=== PATIENT | female | born 2000 | race American Indian/Alaskan Native ===

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

== ENCOUNTER 2019-03-18 09:19 | Emergency (ER) | payer MEDICAID ==
[2019-03-18 09:26] VITALS: BP 156/85
[2019-03-18 10:10] LABS: HCG Qualitative,Urine Negative (Negative)
--- NOTE | 2019-03-18 10:12 | Emergency Department Report ---
ED Female HPI - General Chief complaint: Urogenital-Female Stated complaint: VAGINAL PAIN Time Seen by Provider: 03/18/19 09:36 Source: patient Mode of arrival: Ambulatory Limitations: No Limitations - History of Present Illness Initial comments: This is a 18-year-old female who presents ED complaining of suprapubic pelvic pain with dysuria along with vaginal redness and swelling with pain that hasbeen going On for the past week. Patient denies any fevers/chills/nausea vomiting, chest pain shortness of breath or any other symptoms MD Complaint: dysuria, pelvic pain Location: labia, suprapubic Severity: moderate Severity scale (0 -10): 8 Quality: cramping, burning (the vagina) Worsens with: none Are you Now?: No Associated Symptoms: denies: vaginal bleeding - Related Data Previous Rx's Medication Instructions Recorded Last Taken Type Ibuprofen [Motrin] 800 mg PO Q8H PRN #20 tablet 10/22/13 Unknown Rx Penicillin Vk [Veetids TAB] 2 tab PO BID #40 tablet 10/22/13 Unknown Rx ALBUTEROL Inhaler (OR & NICU) 2 puff IH QID PRN #1 inhalation 04/04/16 Unknown Rx [ProAir HFA Inhaler] guaiFENesin [Robitussin] 200 mg PO Q6HR #20 tablet 04/04/16 Unknown Rx predniSONE [Deltasone] 20 mg PO QDAY #5 tab 04/04/16 Unknown Rx Clindamycin [Clindamycin CAP] 300 mg PO Q6H #28 capsule 04/25/16 Unknown Rx Vit-Fe Fumar-FA [ 1 tab PO QDAY #30 tablet 04/25/16 Unknown Rx Vitamin] oxyCODONE /ACETAMINOPHEN [Percocet 1 tab PO Q6HR PRN #40 tablet 04/25/16 Unknown Rx 5/325] DOXYCYCLINE Hyclate [Vibramycin 100 mg PO Q12HR #28 capsule 11/12/16 Unknown Rx CAP] PE/Mo/Pet,Wh [Preparation H] 1 applicatio [place] BID PRN #1 tube 11/12/16 Unknown Rx metroNIDAZOLE [Flagyl TAB] 500 mg PO Q12HR #28 tab 11/12/16 Unknown Rx Amoxicillin [Amoxicillin TAB] 875 mg PO BID #20 tablet 02/12/17 Unknown Rx Ciprofloxacin HCl [Ciprofloxacin 500 mg PO BID 7 Days tablet 03/11/17 Unknown Rx TAB] Cyclobenzaprine [Flexeril] 10 mg PO QHS PRN #20 tablet 03/11/17 Unknown Rx Ibuprofen [Motrin 800 MG tab] 800 mg PO Q8HR PRN #30 tablet 03/11/17 Unknown Rx Naproxen [Naprosyn] 500 mg PO TID #12 tablet 01/10/18 Unknown Rx traMADoL [Ultram 50 MG tab] 50 mg PO Q6HR PRN #8 tablet 01/10/18 Unknown Rx Clindamycin [Clindamycin CAP] 300 mg PO Q8H #21 cap 03/18/19 Unknown Rx Fluconazole [Diflucan TAB] 150 mg PO ONCE #1 tablet 03/18/19 Unknown Rx Allergies Allergy/AdvReac Type Severity Reaction Status Date / Time No Known Allergies Allergy Verified 06/26/13 19:36 ED Review of Systems ROS: Stated complaint: VAGINAL PAIN Other details as noted in HPI Comment: All other systems reviewed and negative ED Past Medical Hx - Past Medical History Previous Medical History?: Yes Hx Hypertension: No Hx Congestive Heart Failure: No Hx Diabetes: No Hx Deep Vein Thrombosis: No Hx Renal Disease: No Hx Sickle Cell Disease: No Hx Seizures: No Hx Asthma: Yes Hx COPD: No Hx HIV: No Additional medical history: ADHD, - Surgical History Past Surgical History?: Yes Additional Surgical History: 2013, 04-22-2016 - Social History Smoking Status: Never Smoker Substance Use Type: None - Medications Home Medications: Home Medications Medication Instructions Recorded Confirmed Last Taken Type Ibuprofen [Motrin] 800 mg PO Q8H PRN #20 tablet 10/22/13 04/23/16 Unknown Rx Penicillin Vk [Veetids TAB] 2 tab PO BID #40 tablet 10/22/13 04/23/16 Unknown Rx ALBUTEROL Inhaler (OR & NICU) 2 puff IH QID PRN #1 inhalation 04/04/16 04/23/16 Unknown Rx [ProAir HFA Inhaler] guaiFENesin [Robitussin] 200 mg PO Q6HR #20 tablet 04/04/16 04/23/16 Unknown Rx predniSONE [Deltasone] 20 mg PO QDAY #5 tab 04/04/16 04/23/16 Unknown Rx Clindamycin [Clindamycin CAP] 300 mg PO Q6H #28 capsule 04/25/16 Unknown Rx Vit-Fe Fumar-FA [ 1 tab PO QDAY #30 tablet 04/25/16 Unknown Rx Vitamin] oxyCODONE /ACETAMINOPHEN [Percocet 1 tab PO Q6HR PRN #40 tablet 04/25/16 Unknown Rx 5/325] DOXYCYCLINE Hyclate [Vibramycin 100 mg PO Q12HR #28 capsule 11/12/16 Unknown Rx CAP] PE/Mo/Pet,Wh [Preparation H] 1 applicatio [place] BID PRN #1 tube 11/12/16 Unknown Rx metroNIDAZOLE [Flagyl TAB] 500 mg PO Q12HR #28 tab 11/12/16 Unknown Rx Amoxicillin [Amoxicillin TAB] 875 mg PO BID #20 tablet 02/12/17 Unknown Rx Ciprofloxacin HCl [Ciprofloxacin 500 mg PO BID 7 Days tablet 03/11/17 Unknown Rx TAB] Cyclobenzaprine [Flexeril] 10 mg PO QHS PRN #20 tablet 03/11/17 Unknown Rx Ibuprofen [Motrin 800 MG tab] 800 mg PO Q8HR PRN #30 tablet 03/11/17 Unknown Rx Naproxen [Naprosyn] 500 mg PO TID #12 tablet 01/10/18 Unknown Rx traMADoL [Ultram 50 MG tab] 50 mg PO Q6HR PRN #8 tablet 01/10/18 Unknown Rx Clindamycin [Clindamycin CAP] 300 mg PO Q8H #21 cap 03/18/19 Unknown Rx Fluconazole [Diflucan TAB] 150 mg PO ONCE #1 tablet 03/18/19 Unknown Rx ED Physical Exam - General Limitations: No Limitations General appearance: alert, in no apparent distress - Head Head exam: Present: atraumatic, normocephalic - Eye Eye exam: Present: normal appearance - ENT ENT exam: Present: mucous membranes moist - Neck Neck exam: Present: normal inspection - Respiratory Respiratory exam: Present: normal lung sounds bilaterally. Absent: respiratory distress - Cardiovascular Cardiovascular Exam: Present: regular rate, normal rhythm. Absent: systolic murmur, diastolic murmur, rubs, gallop - GI/Abdominal GI/Abdominal exam: Present: soft, normal bowel sounds. Absent: distended, tenderness - External exam: Present: erythema, swelling Speculum exam: Present: vaginal discharge. Absent: erythema, cervical discharge, vaginal bleeding Bi-manual exam: Present: normal bi-manual exam - Extremities Exam Extremities exam: Present: normal inspection, full ROM - Back Exam Back exam: Present: normal inspection - Neurological Exam Neurological exam: Present: alert, oriented X3, normal gait - Psychiatric Psychiatric exam: Present: normal affect, normal mood - Skin Skin exam: Present: warm, dry, intact, normal color. Absent: rash ED Course Vital Signs 03/18/19 09:25 Temperature 97.6 F Pulse Rate 83 Respiratory 18 Rate Blood Pressure 156/85 O2 Sat by Pulse 97 Oximetry ED Medical Decision Making - Medical Decision Making 18-year-old female presents with vulvovaginitis. Patient was sent home with treatment medication. Discussed the patient to follow-up with [facility] or her [facility] doctor. Discussed with the patient if any signs of SCDs patient is advised to follow-up for STD screening and treatment. This is a normal patient is in no acute distress Critical care attestation.: If time is entered above; I have spent that time in minutes in the direct care of this critically ill patient, excluding procedure time. ED Disposition Clinical Impression: Acute vulvovaginitis, Dysuria, Suprapubic pain Disposition: - TO HOME OR SELFCARE Is pt being admited?: No Does the pt Need Aspirin: No Condition: Stable Instructions: Vaginitis (ED), Vulvovaginal Candidiasis (ED), Dysuria (ED) Additional Instructions: Make sure to follow up with the primary care physician as discussed. Take all your medications as you've been prescribed. If you have any worsening symptoms or develop new symptoms please return to ED immediately. Prescriptions: Clindamycin [Clindamycin CAP] 300 mg PO Q8H #21 cap Fluconazole [Diflucan TAB] 150 mg PO ONCE #1 tablet Referrals: PRIMARY CARE, [Primary Care Provider] - 3-5 Days [facility] [Outside] - 3-5 Days [facility] [Outside] - 3-5 Days [facility] [Outside] - 3-5 Days [facility] [Outside] - 3-5 Days Forms: Accompanied Note, Work/School Release Form(ED) Time of Disposition: 10:21
[2019-03-18 10:18] LABS: Bacteria,Urine 1+ /HPF (Negative); Bilirubin,Urine NEG (Negative); Blood,Urine NEG (Negative); Color,Urine Straw (Yellow); Mucus,Urine FEW /HPF; Protein,Urine <15 mg/dL mg/dL (Negative); Urobilinogen,Urine < 2.0 mg/dL (<2.0)
== END 2019-03-18 11:05 | disposition home or self-care (01) ==
LOC: ED 09:19
DX: N76.0 Acute vaginitis (principal); R10.9 Unspecified abdominal pain; F90.9 Attention-deficit hyperactivity disorder, unspecified type; Z98.890 Other specified postprocedural states; Z79.1 Long term (current) use of non-steroidal anti-inflammatories (NSAID); Z79.2 Long term (current) use of antibiotics; Z79.899 Other long term (current) drug therapy; Z79.4 Long term (current) use of insulin
CPT/HCPCS: 81001; 81025

== ENCOUNTER 2019-11-28 15:21 | Emergency (ER) | payer MEDICAID ==
[2019-11-28 15:33] VITALS: BP 159/81
--- NOTE | 2019-11-28 18:21 | Emergency Department Report ---
Blank Doc - Documentation Documentation: 19-year-old female that presents with dysuria, vaginal irritation, vaginal dis charge and pelvic pain. This initial assessment/diagnostic orders/clinical plan/treatment(s) is/are subject to change based on patient's health status, clinical progression and re- assessment by fellow clinical providers in the ED. Further treatment and workup at subsequent clinical providers discretion. Patient/guardians urged not to elope from the ED as their condition may be serious if not clinically assessed and managed. Initial orders include: 1- Patient sent to [facility] for further evaluation and treatment 2- UA 3- pelvic exam to be done
[2019-11-28 19:01] LABS: Bacteria,Urine 1+ /HPF (Negative); Bilirubin,Urine NEG (Negative); Blood,Urine NEG (Negative); Color,Urine Yellow (Yellow); Mucus,Urine FEW /HPF; Protein,Urine <15 mg/dL mg/dL (Negative); Urobilinogen,Urine < 2.0 mg/dL (<2.0)
[2019-11-28 19:07] LABS: HCG Qualitative,Urine Negative (Negative)
[2019-11-28] MEDS ORDERED: LIDOCAINE-MPF (1%) 10 MG/1 ML VIAL 5 ML INFILTRATI ONE (20:04)
[2019-11-28] MEDS ORDERED: AZITHROMYCIN 250 MG TAB PO ONE (20:04)
--- NOTE | 2019-11-28 20:11 | Emergency Department Report ---
ED Female HPI - General Chief complaint: Urogenital-Female Stated complaint: BODYACHE Time Seen by Provider: 11/28/19 18:20 Source: patient Mode of arrival: Ambulatory Limitations: No Limitations - History of Present Illness Initial comments: 19-year-old female presents to ED with complaint of vaginal irritation x1 week. Patient reports yellow discharge, dysuria, vaginal itching. She denies any abdominal pain. Patient also reports having a fever blister to her lip. MD Complaint: vaginal discharge, dysuria -: week(s) (1) Severity: mild Consistency: constant Improves with: none Worsens with: urination Are you Now?: No Associated Symptoms: vaginal discharge, dysuria. denies: abdominal pain, nausea/vomiting, fever/chills - Related Data Previous Rx's Medication Instructions Recorded Last Taken Type Ibuprofen [Motrin] 800 mg PO Q8H PRN #20 tablet 10/22/13 Unknown Rx Penicillin Vk [Veetids TAB] 2 tab PO BID #40 tablet 10/22/13 Unknown Rx Albuterol Mdi (or & Nicu Only) 2 puff IH QID PRN #1 inhalation 04/04/16 Unknown Rx [ProAir HFA Inhaler] guaiFENesin [Robitussin] 200 mg PO Q6HR #20 tablet 04/04/16 Unknown Rx predniSONE [Deltasone] 20 mg PO QDAY #5 tab 04/04/16 Unknown Rx Clindamycin [Clindamycin CAP] 300 mg PO Q6H #28 capsule 04/25/16 Unknown Rx Vit-Fe Fumar-FA [ 1 tab PO QDAY #30 tablet 04/25/16 Unknown Rx Vitamin] oxyCODONE /ACETAMINOPHEN [Percocet 1 tab PO Q6HR PRN #40 tablet 04/25/16 Unknown Rx 5/325] DOXYCYCLINE Hyclate [Vibramycin 100 mg PO Q12HR #28 capsule 11/12/16 Unknown Rx CAP] PE/Mo/Pet,Wh [Preparation H] 1 applicatio [place] BID PRN #1 tube 11/12/16 Unknown Rx metroNIDAZOLE [Flagyl TAB] 500 mg PO Q12HR #28 tab 11/12/16 Unknown Rx Amoxicillin [Amoxicillin TAB] 875 mg PO BID #20 tablet 02/12/17 Unknown Rx Ciprofloxacin HCl [Ciprofloxacin 500 mg PO BID 7 Days tablet 12/06/17 Unknown Rx TAB] Cyclobenzaprine [Flexeril] 10 mg PO QHS PRN #20 tablet 03/11/17 Unknown Rx Ibuprofen [Motrin 800 MG tab] 800 mg PO Q8HR PRN #30 tablet 03/11/17 Unknown Rx Naproxen [Naprosyn] 500 mg PO TID #12 tablet 01/10/18 Unknown Rx traMADoL [Ultram 50 MG tab] 50 mg PO Q6HR PRN #8 tablet 01/10/18 Unknown Rx Clindamycin [Clindamycin CAP] 300 mg PO Q8H #21 cap 03/18/19 Unknown Rx Fluconazole (Nf) [Diflucan TAB] 150 mg PO ONCE #1 tablet 03/18/19 Unknown Rx Valacyclovir HCl [Valtrex] 2,000 mg PO Q12HR 1 Days #4 tablet 11/28/19 Unknown Rx metroNIDAZOLE [Flagyl] 500 mg PO Q12HR 7 Days #14 tab 11/28/19 Unknown Rx Allergies Allergy/AdvReac Type Severity Reaction Status Date / Time No Known Allergies Allergy Verified 06/26/13 19:36 ED Review of Systems ROS: Stated complaint: BODYACHE Other details as noted in HPI Comment: All other systems reviewed and negative Constitutional: denies: chills, fever ENT: other (Patient reports fever blister lip) Gastrointestinal: denies: abdominal pain Genitourinary: dysuria, discharge ED Past Medical Hx - Past Medical History Previous Medical History?: Yes Hx Hypertension: No Hx Congestive Heart Failure: No Hx Diabetes: No Hx Deep Vein Thrombosis: No Hx Renal Disease: No Hx Sickle Cell Disease: No Hx Seizures: No Hx Asthma: Yes Hx COPD: No Hx HIV: No Additional medical history: ADHD, - Surgical History Past Surgical History?: Yes Additional Surgical History: 2014, 04-22-2016 - Social History Smoking Status: Never Smoker Substance Use Type: None - Medications Home Medications: Home Medications Medication Instructions Recorded Confirmed Last Taken Type Ibuprofen [Motrin] 800 mg PO Q8H PRN #20 tablet 10/22/13 04/23/16 Unknown Rx Penicillin Vk [Veetids TAB] 2 tab PO BID #40 tablet 10/22/13 04/23/16 Unknown Rx Albuterol Mdi (or & Nicu Only) 2 puff IH QID PRN #1 inhalation 04/04/16 04/23/16 Unknown Rx [ProAir HFA Inhaler] guaiFENesin [Robitussin] 200 mg PO Q6HR #20 tablet 04/04/16 04/23/16 Unknown Rx predniSONE [Deltasone] 20 mg PO QDAY #5 tab 04/04/16 04/23/16 Unknown Rx Clindamycin [Clindamycin CAP] 300 mg PO Q6H #28 capsule 04/25/16 Unknown Rx Vit-Fe Fumar-FA [ 1 tab PO QDAY #30 tablet 04/25/16 Unknown Rx Vitamin] oxyCODONE /ACETAMINOPHEN [Percocet 1 tab PO Q6HR PRN #40 tablet 04/25/16 Unknown Rx 5/325] DOXYCYCLINE Hyclate [Vibramycin 100 mg PO Q12HR #28 capsule 11/12/16 Unknown Rx CAP] PE/Mo/Pet,Wh [Preparation H] 1 applicatio [place] BID PRN #1 tube 11/12/16 Unknown Rx metroNIDAZOLE [Flagyl TAB] 500 mg PO Q12HR #28 tab 11/12/16 Unknown Rx Amoxicillin [Amoxicillin TAB] 875 mg PO BID #20 tablet 02/12/17 Unknown Rx Ciprofloxacin HCl [Ciprofloxacin 500 mg PO BID 7 Days tablet 03/11/17 Unknown Rx TAB] Cyclobenzaprine [Flexeril] 10 mg PO QHS PRN #20 tablet 03/11/17 Unknown Rx Ibuprofen [Motrin 800 MG tab] 800 mg PO Q8HR PRN #30 tablet 03/11/17 Unknown Rx Naproxen [Naprosyn] 500 mg PO TID #12 tablet 01/10/18 Unknown Rx traMADoL [Ultram 50 MG tab] 50 mg PO Q6HR PRN #8 tablet 01/10/18 Unknown Rx Clindamycin [Clindamycin CAP] 300 mg PO Q8H #21 cap 03/18/19 Unknown Rx Fluconazole (Nf) [Diflucan TAB] 150 mg PO ONCE #1 tablet 03/18/19 Unknown Rx Valacyclovir HCl [Valtrex] 2,000 mg PO Q12HR 1 Days #4 tablet 11/28/19 Unknown Rx metroNIDAZOLE [Flagyl] 500 mg PO Q12HR 7 Days #14 tab 11/28/19 Unknown Rx ED Physical Exam - General Limitations: No Limitations General appearance: alert, in no apparent distress, obese - Head Head exam: Present: atraumatic, normocephalic - Eye Eye exam: Present: normal appearance - ENT ENT exam: Present: mucous membranes moist - Neck Neck exam: Present: normal inspection - Respiratory Respiratory exam: Present: normal lung sounds bilaterally. Absent: respiratory distress - Cardiovascular Cardiovascular Exam: Present: regular rate, normal rhythm - GI/Abdominal GI/Abdominal exam: Present: soft. Absent: distended, tenderness - External exam: Present: normal external exam Speculum exam: Present: vaginal discharge, cervical discharge. Absent: vaginal bleeding Bi-manual exam: Absent: cervical motion tendernes, adnexal tenderness - Extremities Exam Extremities exam: Present: normal inspection - Neurological Exam Neurological exam: Present: alert, oriented X3 - Psychiatric Psychiatric exam: Present: normal affect, normal mood - Skin Skin exam: Present: warm, dry, intact, normal color ED Course Vital Signs 11/28/19 15:33 Temperature 98.2 F Pulse Rate 74 Respiratory 16 Rate Blood Pressure 159/81 [Right] O2 Sat by Pulse 98 Oximetry ED Medical Decision Making - Medical Decision Making 19-year-old female presents to ED with dysuria, vaginal discharge. No cervical motion tenderness on pelvic exam. Wet prep positive for bacterial vaginosis and trichomonas. Patient will be given prophylaxis for gonorrhea and chlamydia as well. She will also be given prescription for Valtrex for cold sore. - Differential Diagnosis Gonorrhea, chlamydia, yeast infection, BV Critical care attestation.: If time is entered above; I have spent that time in minutes in the direct care of this critically ill patient, excluding procedure time. ED Disposition Clinical Impression: Cervicitis, Trichomonal vaginitis, Bacterial vaginosis, Herpes labialis Disposition: TO HOME OR SELFCARE Is pt being admited?: No Condition: Stable Instructions: Bacterial Vaginosis (ED), Cervicitis (ED), Sexually Transmitted Diseases (ED), Trichomoniasis (ED), Oral Herpes Simplex Virus Infections (ED) Prescriptions: metroNIDAZOLE [Flagyl] 500 mg PO Q12HR 7 Days #14 tab Valacyclovir HCl [Valtrex] 2,000 mg PO Q12HR 1 Days #4 tablet Referrals: PRIMARY CARE, [Primary Care Provider] - 3-5 Days Forms: STI Treatment and Prevention Time of Disposition: 20:11
== END 2019-11-28 20:51 | disposition home or self-care (01) ==
LOC: ED 15:21
DX: N76.0 Acute vaginitis (principal); B96.89 Other specified bacterial agents as the cause of diseases classified elsewhere; N72 Inflammatory disease of cervix uteri; B00.1 Herpesviral vesicular dermatitis; J45.909 Unspecified asthma, uncomplicated; F90.8 Attention-deficit hyperactivity disorder, other type; Z98.890 Other specified postprocedural states; Z79.899 Other long term (current) drug therapy
CPT/HCPCS: 81001; 81025; 87086; 87210; 87591; 96372; 99284; J0696

== ENCOUNTER 2020-01-22 22:37 | Emergency (ER) | payer MEDICAID ==
[2020-01-23 00:21] VITALS: BP 126/81
--- NOTE | 2020-01-23 01:01 | XRay Report ---
CHEST 2 VIEW INDICATION / CLINICAL INFORMATION: cough. COMPARISON: 04/24/2016 FINDINGS: SUPPORT DEVICES: None. HEART / MEDIASTINUM: No significant abnormality. LUNGS / PLEURA: No significant pulmonary or pleural abnormality.. No pneumothorax. ADDITIONAL FINDINGS: No significant additional findings. IMPRESSION: 1. No acute findings. Signer Name: Link Badillo MD Signed: 01/23/2020 12:56 AM Workstation Name: [id number]
--- NOTE | 2020-01-23 04:41 | Emergency Department Report ---
Minor Respiratory - HPI Chief Complaint: Upper Respiratory Infection Stated Complaint: GABRIEL Time Seen by Provider: 01/23/20 04:00 Duration: 1 Day Severity: mild Minor Respiratory: Yes Rhinorrhea, Yes Able to Tolerate Fluids, Yes Cough, No Sore Throat, No Ear Pain, No Sick Contacts, No Hemoptysis, No Chest Pain, No Shortness of Breath, No Fever Other History: The patient was evaluated in the emergency department for symptoms described in the history of present illness. He/she was evaluated in the context of the global COVID-19 pandemic, which necessitated consideration that the patient might be at risk for infection with the virus that causes COVID-19. Institutional protocols and algorithms that pertain to the evaluation of patients at risk for COVID-19 are in a state of rapid change based on information released by regulatory bodies including the CDC and federal and state organizations. These policies and algorithms were followed during the patient's care in the emergency department. Please note that these policies, procedures and recommendations changed on a rapid basis. 19-year-old obese female presents to the emergency room reporting a productive cough runny nose and nasal congestion x1 day. Patient denies any fever chills no nausea no vomiting no chest pain or shortness of breath. Patient is taking nothing for her symptoms. ED Review of Systems ROS: Stated complaint: GABRIEL Other details as noted in HPI Comment: All other systems reviewed and negative ED Past Medical Hx - Past Medical History Previous Medical History?: Yes Hx Hypertension: No Hx Congestive Heart Failure: No Hx Diabetes: No Hx Deep Vein Thrombosis: No Hx Renal Disease: No Hx Sickle Cell Disease: No Hx Seizures: No Hx Asthma: Yes Hx COPD: No Hx HIV: No Additional medical history: ADHD, - Surgical History Past Surgical History?: Yes Additional Surgical History: 2014, 04-22-2016 - Social History Smoking Status: Never Smoker Substance Use Type: None - Medications Home Medications: Home Medications Medication Instructions Recorded Confirmed Last Taken Type Ibuprofen [Motrin] 800 mg PO Q8H PRN #20 tablet 10/22/13 04/23/16 Unknown Rx Penicillin Vk [Veetids TAB] 2 tab PO BID #40 tablet 10/22/13 04/23/16 Unknown Rx Albuterol Mdi (or & Nicu Only) 2 puff IH QID PRN #1 inhalation 04/04/16 04/23/16 Unknown Rx [ProAir HFA Inhaler] guaiFENesin [Robitussin] 200 mg PO Q6HR #20 tablet 04/04/16 04/23/16 Unknown Rx predniSONE [Deltasone] 20 mg PO QDAY #5 tab 04/04/16 04/23/16 Unknown Rx Clindamycin [Clindamycin CAP] 300 mg PO Q6H #28 capsule 04/25/16 Unknown Rx Vit-Fe Fumar-FA [ 1 tab PO QDAY #30 tablet 04/25/16 Unknown Rx Vitamin] oxyCODONE /ACETAMINOPHEN [Percocet 1 tab PO Q6HR PRN #40 tablet 04/25/16 Unknown Rx 5/325] DOXYCYCLINE Hyclate [Vibramycin 100 mg PO Q12HR #28 capsule 11/12/16 Unknown Rx CAP] PE/Mo/Pet,Wh [Preparation H] 1 applicatio [place] BID PRN #1 tube 11/12/16 Unknown Rx metroNIDAZOLE [Flagyl TAB] 500 mg PO Q12HR #28 tab 11/12/16 Unknown Rx Amoxicillin [Amoxicillin TAB] 875 mg PO BID #20 tablet 02/12/17 Unknown Rx Ciprofloxacin HCl [Ciprofloxacin 500 mg PO BID 7 Days tablet 03/11/17 Unknown Rx TAB] Cyclobenzaprine [Flexeril] 10 mg PO QHS PRN #20 tablet 03/11/17 Unknown Rx Ibuprofen [Motrin 800 MG tab] 800 mg PO Q8HR PRN #30 tablet 03/11/17 Unknown Rx Naproxen [Naprosyn] 500 mg PO TID #12 tablet 01/10/18 Unknown Rx traMADoL [Ultram 50 MG tab] 50 mg PO Q6HR PRN #8 tablet 01/10/18 Unknown Rx Clindamycin [Clindamycin CAP] 300 mg PO Q8H #21 cap 03/18/19 Unknown Rx Fluconazole (Nf) [Diflucan TAB] 150 mg PO ONCE #1 tablet 03/18/19 Unknown Rx Valacyclovir HCl [Valtrex] 2,000 mg PO Q12HR 1 Days #4 tablet 11/28/19 Unknown Rx metroNIDAZOLE [Flagyl] 500 mg PO Q12HR 7 Days #14 tab 11/28/19 Unknown Rx Minor Respiratory Exam - Exam General: Vital signs noted. No distress. Alert and acting appropriately. HEENT: Yes Moist Mucous Membranes, No Pharyngeal Erythema, No Pharyngeal Exudates, No Rhinorrhea, No Conjuctival Injection, No Frontal Tenderness, No Maxillary Tenderness Neck: Yes Supple, No Adenopathy Lungs: Yes Good Air Exchange, Yes Stridor, No Wheezes, No Ronchi, No Cough, No Labored Respirations, No Retractions, No Use of Accessory Muscles, No Other Abnormal Lung Sounds Heart: Yes Regular, No Murmur Abdomen: Yes Normal Bowel Sounds, No Tenderness, No Peritoneal Signs Skin: No Rash, No Edema Neurologic: Alert and oriented, no deficits. Musculoskeletal: Unremarkable. ED Course Vital Signs 01/23/20 00:16 Temperature 98.0 F Pulse Rate 75 Respiratory 16 Rate Blood Pressure 126/81 O2 Sat by Pulse 96 Oximetry ED Medical Decision Making - Radiology Data Radiology results: report reviewed Patient: ROBERTO TOVAR MR#: [id number] : 2000 Acct:[id number] Age/Sex: 19 / F ADM Date: 01/22/20 Loc: ED Attending Dr: Ordering Physician: ED MD PACO Date of Service: 01/23/20 Procedure(s): XR chest routine 2V Accession Number(s): [id number] cc: ED MD PACO Fluoro Time In Minutes: CHEST 2 VIEW INDICATION / CLINICAL INFORMATION: cough. COMPARISON: 04/24/2016 FINDINGS: SUPPORT DEVICES: None. HEART / MEDIASTINUM: No significant abnormality. LUNGS / PLEURA: No significant pulmonary or pleural abnormality.. No pneumothorax. ADDITIONAL FINDINGS: No significant additional findings. IMPRESSION: 1. No acute findings. Signer Name: Link Badillo MD Signed: 01/23/2020 12:56 AM Workstation Name: [id number] Transcribed By: SS Dictated By: Link Badillo MD Electronically Authenticated By: Link Badillo MD Signed Date/Time: 01/23/2055 DD/ TD/TT: - Medical Decision Making 19-year-old obese female presents to the emergency room reporting a productive cough runny nose and nasal congestion x1 day. Patient denies any fever chills no nausea no vomiting no chest pain or shortness of breath. Patient is taking nothing for her symptoms. Chest x-ray is negative for any acute findings. Patient can take [id number] Zyrtec some Robitussin. Critical care attestation.: If time is entered above; I have spent that time in minutes in the direct care of this critically ill patient, excluding procedure time. ED Disposition Clinical Impression: Viral syndrome Disposition: DC-01 TO HOME OR SELFCARE Is pt being admited?: No Does the pt Need Aspirin: No Condition: Stable Instructions: Viral Syndrome (ED) Additional Instructions: As we discussed, symptoms most likely coming from cold/virus infection. These typically do not get antibiotics. Patient can have ibuprofen every 6 hours, alternated with acetaminophen every 4 hours. You can try [id number] Robitussin and Zyrtec. You may not want to eat as much as normal, and this is expected. You should follow-up with her primary care provider within 3-5 days. Return to the ER right away with lethargy, irritability, change in mental status, projectile vomiting, inability to tolerate liquid feeds. Your symptoms appear most consistent with a nonspecific viral syndrome. However, given this current pandemic, COVID-19 is in the differential of possibilities. Despite your previous negative COVID-19 test, I do recommend repeat outpatient Covid 19 testing. In the meantime, isolate/quarantine yourself and stay away from anyone who is elderly, immunocompromised or chronically ill. You can use ibuprofen every 6-8 hours and Tylenol every 4-8 hours, using the dosing on the back of the bottle, as needed for any fever or body aches. Return to the emergency department with any worsening of your symptoms, development of chest pain or shortness of breath, or with any acute distress. Referrals: PRIMARY CAREMD [Primary Care Provider] - 3-5 Days [facility] [Provider Group] - 3-5 Days Forms: Work/School Release Form(ED)
== END 2020-01-23 04:47 | disposition home or self-care (01) ==
LOC: ED 22:37
DX: B34.9 Viral infection, unspecified (principal); J45.909 Unspecified asthma, uncomplicated; F90.8 Attention-deficit hyperactivity disorder, other type; Z98.890 Other specified postprocedural states; Z79.899 Other long term (current) drug therapy; Z88.8 Allergy status to other drugs, medicaments and biological substances
CPT/HCPCS: 71046

== ENCOUNTER 2020-05-09 20:22 | Emergency (ER) | payer MEDICAID ==
[2020-05-09] MEDS ORDERED: diphenhydrAMINE 50 MG/ML VIAL IV ONE (20:50)
[2020-05-09] MEDS ORDERED: KETOROLAC 30 MG/1 ML INJ IV ONE (20:50)
[2020-05-09] MEDS ORDERED: dexAMETHasone 20 MG/5 ML VIAL IV ONE (20:50)
[2020-05-09] MEDS ORDERED: FAMOTIDINE 20 MG/2 ML INJ IV ONE (20:50)
--- NOTE | 2020-05-09 21:05 | Emergency Department Report ---
ED General Adult HPI - General Stated complaint: THROAT PAINS PUI?: No Time Seen by Provider: 05/09/20 20:48 Source: patient Mode of arrival: Ambulatory Limitations: No Limitations - History of Present Illness Initial comments: Patient is a 20-year-old female presents emergency room with complaints of tongue pain and swelling that began today. She states that she had her tongue pierced yesterday. She states that her throat also feels sore and swollen. She states that she does have discomfort with which she is still able to swallow. She is able to tolerate p.o. intake. She denies any fever, vomiting, cough, shortness of breath. She denies any known allergies. No past medical history. No allergies to medications. She is currently on her menstrual cycle. - Related Data Previous Rx's Medication Instructions Recorded Last Taken Type Ibuprofen [Motrin] 800 mg PO Q8H PRN #20 tablet 10/22/13 Unknown Rx Penicillin Vk [Veetids TAB] 2 tab PO BID #40 tablet 10/22/13 Unknown Rx Albuterol Mdi (or & Nicu Only) 2 puff IH QID PRN #1 inhalation 04/04/16 Unknown Rx [ProAir HFA Inhaler] guaiFENesin [Robitussin] 200 mg PO Q6HR #20 tablet 04/04/16 Unknown Rx predniSONE [Deltasone] 20 mg PO QDAY #5 tab 04/04/16 Unknown Rx Clindamycin [Clindamycin CAP] 300 mg PO Q6H #28 capsule 04/25/16 Unknown Rx Vit-Fe Fumar-FA [ 1 tab PO QDAY #30 tablet 04/25/16 Unknown Rx Vitamin] oxyCODONE /ACETAMINOPHEN [Percocet 1 tab PO Q6HR PRN #40 tablet 04/25/16 Unknown Rx 5/325] DOXYCYCLINE Hyclate [Vibramycin 100 mg PO Q12HR #28 capsule 11/12/16 Unknown Rx CAP] PE/Mo/Pet,Wh [Preparation H] 1 applicatio ND BID PRN #1 tube 11/12/16 Unknown Rx metroNIDAZOLE [Flagyl TAB] 500 mg PO Q12HR #28 tab 11/12/16 Unknown Rx Amoxicillin [Amoxicillin TAB] 875 mg PO BID #20 tablet 02/12/17 Unknown Rx Ciprofloxacin HCl [Ciprofloxacin 500 mg PO BID 7 Days tablet 03/11/17 Unknown Rx TAB] Cyclobenzaprine [Flexeril] 10 mg PO QHS PRN #20 tablet 03/11/17 Unknown Rx Ibuprofen [Motrin 800 MG tab] 800 mg PO Q8HR PRN #30 tablet 03/11/17 Unknown Rx Naproxen [Naprosyn] 500 mg PO TID #12 tablet 01/10/18 Unknown Rx traMADoL [Ultram 50 MG tab] 50 mg PO Q6HR PRN #8 tablet 01/10/18 Unknown Rx Clindamycin [Clindamycin CAP] 300 mg PO Q8H #21 cap 03/18/19 Unknown Rx Fluconazole (Nf) [Diflucan TAB] 150 mg PO ONCE #1 tablet 03/18/19 Unknown Rx Valacyclovir HCl [Valtrex] 2,000 mg PO Q12HR 1 Days #4 tablet 11/28/19 Unknown Rx metroNIDAZOLE [Flagyl] 500 mg PO Q12HR 7 Days #14 tab 11/28/19 Unknown Rx Naproxen [EC-Naprosyn] 500 mg PO BID PRN #14 tablet.dr 05/09/20 Unknown Rx Prednisone [predniSONE 10 mg 10 mg PO .TAPER #1 tab.ds.pk 05/09/20 Unknown Rx (6-Day Pack, 21 Tabs)] diphenhydrAMINE [Benadryl CAP] 25 mg PO Q8HR PRN #12 capsule 05/09/20 Unknown Rx Allergies Allergy/AdvReac Type Severity Reaction Status Date / Time No Known Allergies Allergy Verified 06/26/13 19:36 ED Review of Systems ROS: Stated complaint: THROAT PAINS Other details as noted in HPI Comment: All other systems reviewed and negative ED Past Medical Hx - Past Medical History Hx Hypertension: No Hx Congestive Heart Failure: No Hx Diabetes: No Hx Deep Vein Thrombosis: No Hx Renal Disease: No Hx Sickle Cell Disease: No Hx Seizures: No Hx Asthma: Yes Hx COPD: No Hx HIV: No Additional medical history: ADHD, - Surgical History Additional Surgical History: 2014, 04-22-2016 - Social History Smoking Status: Never Smoker Substance Use Type: None - Medications Home Medications: Home Medications Medication Instructions Recorded Confirmed Last Taken Type Ibuprofen [Motrin] 800 mg PO Q8H PRN #20 tablet 10/22/13 04/23/16 Unknown Rx Penicillin Vk [Veetids TAB] 2 tab PO BID #40 tablet 10/22/13 04/23/16 Unknown Rx Albuterol Mdi (or & Nicu Only) 2 puff IH QID PRN #1 inhalation 04/04/16 04/23/16 Unknown Rx [ProAir HFA Inhaler] guaiFENesin [Robitussin] 200 mg PO Q6HR #20 tablet 04/04/16 04/23/16 Unknown Rx predniSONE [Deltasone] 20 mg PO QDAY #5 tab 04/04/16 04/23/16 Unknown Rx Clindamycin [Clindamycin CAP] 300 mg PO Q6H #28 capsule 04/25/16 Unknown Rx Vit-Fe Fumar-FA [ 1 tab PO QDAY #30 tablet 04/25/16 Unknown Rx Vitamin] oxyCODONE /ACETAMINOPHEN [Percocet 1 tab PO Q6HR PRN #40 tablet 04/25/16 Unknown Rx 5/325] DOXYCYCLINE Hyclate [Vibramycin 100 mg PO Q12HR #28 capsule 11/12/16 Unknown Rx CAP] PE/Mo/Pet,Wh [Preparation H] 1 applicatio ND BID PRN #1 tube 11/12/16 Unknown Rx metroNIDAZOLE [Flagyl TAB] 500 mg PO Q12HR #28 tab 11/12/16 Unknown Rx Amoxicillin [Amoxicillin TAB] 875 mg PO BID #20 tablet 02/12/17 Unknown Rx Ciprofloxacin HCl [Ciprofloxacin 500 mg PO BID 7 Days tablet 03/11/17 Unknown Rx TAB] Cyclobenzaprine [Flexeril] 10 mg PO QHS PRN #20 tablet 03/11/17 Unknown Rx Ibuprofen [Motrin 800 MG tab] 800 mg PO Q8HR PRN #30 tablet 03/11/17 Unknown Rx Naproxen [Naprosyn] 500 mg PO TID #12 tablet 01/10/18 Unknown Rx traMADoL [Ultram 50 MG tab] 50 mg PO Q6HR PRN #8 tablet 01/10/18 Unknown Rx Clindamycin [Clindamycin CAP] 300 mg PO Q8H #21 cap 03/18/19 Unknown Rx Fluconazole (Nf) [Diflucan TAB] 150 mg PO ONCE #1 tablet 03/18/19 Unknown Rx Valacyclovir HCl [Valtrex] 2,000 mg PO Q12HR 1 Days #4 tablet 11/28/19 Unknown Rx metroNIDAZOLE [Flagyl] 500 mg PO Q12HR 7 Days #14 tab 11/28/19 Unknown Rx Naproxen [EC-Naprosyn] 500 mg PO BID PRN #14 tablet.dr 05/09/20 Unknown Rx Prednisone [predniSONE 10 mg 10 mg PO .TAPER #1 tab.ds.pk 05/09/20 Unknown Rx (6-Day Pack, 21 Tabs)] diphenhydrAMINE [Benadryl CAP] 25 mg PO Q8HR PRN #12 capsule 05/09/20 Unknown Rx ED Physical Exam - General General appearance: alert, in no apparent distress - Head Head exam: Present: atraumatic, normocephalic - Eye Eye exam: Present: normal appearance - ENT ENT exam: Present: mucous membranes moist, other (there is edema present to the tongue with a metal like piercing present, uvula is midline no uvular edema or deviation, no tongue elevation, no trismus, no muffled voice, no tonsillar hypertrophy or exudates, no signs of infection) - Respiratory Respiratory exam: Present: normal lung sounds bilaterally. Absent: respiratory distress, wheezes, rales, rhonchi, stridor, chest wall tenderness, accessory muscle use, decreased breath sounds, prolonged expiratory - Cardiovascular Cardiovascular Exam: Present: regular rate, normal rhythm, normal heart sounds. Absent: systolic murmur, diastolic murmur, rubs, gallop - Neurological Exam Neurological exam: Present: alert, oriented X3 - Psychiatric Psychiatric exam: Present: normal affect, normal mood - Skin Skin exam: Present: warm, dry, intact ED Course Vital Signs 05/09/20 05/09/20 05/09/20 21:04 21:08 21:29 Temperature 98.5 F 98.5 F Pulse Rate 70 70 Respiratory 16 18 16 Rate Blood Pressure 116/65 Blood Pressure 116/65 [Right] O2 Sat by Pulse 100 100 Oximetry ED Medical Decision Making - Medical Decision Making Patient is a 20-year-old female presents emergency room with complaints of tongue pain and swelling that began today. She states that she had her tongue pierced yesterday. She states that her throat also feels sore and swollen. She states that she does have discomfort with which she is still able to swallow. She is able to tolerate p.o. intake. She denies any fever, vomiting, cough, shortness of breath. She denies any known allergies. No past medical history. No allergies to medications. She is currently on her menstrual cycle. Vitals are normal. On exam there is edema present to the tongue with a metal like piercing present, uvula is midline no uvular edema or deviation, no tongue elevation, no trismus, no muffled voice, no tonsillar hypertrophy or exudates, no signs of infection. Symptoms appear most consistent with swelling after tongue piercing. Do not suspect angioedema or acute severe allergic reaction. Patient is tolerating p.o. intake, no shortness of breath, no stridor on exam. Patient given prescription for naproxen, Benadryl, prednisone. Advised patient Please take medication as prescribed as needed. Please consider removing tongue piercing. Follow-up with your primary care doctor for reexamination. Return to emergency room immediately for any new or worsening symptoms. Critical care attestation.: If time is entered above; I have spent that time in minutes in the direct care of this critically ill patient, excluding procedure time. ED Disposition Clinical Impression: Tongue swelling, Tongue pain Disposition: TO HOME OR SELFCARE Is pt being admited?: No Does the pt Need Aspirin: No Condition: Stable Additional Instructions: Please take medication as prescribed as needed. Please consider removing tongue piercing. Follow-up with your primary care doctor for reexamination. Return to emergency room immediately for any new or worsening symptoms. Prescriptions: diphenhydrAMINE [Benadryl CAP] 25 mg PO Q8HR PRN #12 capsule PRN Reason: swelling Naproxen [EC-Naprosyn] 500 mg PO BID PRN #14 tablet.dr PRN Reason: pain Prednisone [predniSONE 10 mg (6-Day Pack, 21 Tabs)] 10 mg PO .TAPER #1 tab.ds.pk Referrals: PRIMARY MD DARREN [Primary Care Provider] - 2-3 Days LISS CARRERO MD [Staff Physician] - 2-3 Days [facility] [Provider Group] - 2-3 Days Time of Disposition: 22:06 Print Language: TURKISH
[2020-05-09 21:09] VITALS: BP 116/65
== END 2020-05-09 22:45 | disposition home or self-care (01) ==
LOC: ED 20:22
DX: K14.6 Glossodynia (principal); R22.0 Localized swelling, mass and lump, head; J45.909 Unspecified asthma, uncomplicated; Z98.890 Other specified postprocedural states; Z79.1 Long term (current) use of non-steroidal anti-inflammatories (NSAID); Z79.2 Long term (current) use of antibiotics; Z79.899 Other long term (current) drug therapy
CPT/HCPCS: 96374; 96375; 99282; J1100; J1200; J1885

== ENCOUNTER 2020-08-30 21:30 | Emergency (ER) | payer MEDICAID ==
[2020-08-30 22:15] VITALS: BP 149/80
[2020-08-30 23:01] LABS: Basophils # (Auto) 0.1 K/mm3 (0.0-0.1); Basophils % (Auto) 0.8 % (0.0-1.8); Eosinophils # (Auto) 0.4 K/mm3 (0.0-0.4); Eosinophils % (Auto) 4.7 % (0.0-4.3); Hematocrit 42.5 % (30.3-42.9); Hemoglobin 14.8 gm/dl (10.1-14.3); Lymphocytes # (Auto) 2.6 K/mm3 (1.2-5.4); Lymphocytes % (Auto) 27.5 % (13.4-35.0); Mean Corpuscular HGB Conc 35 % (30-34); Mean Corpuscular Volume 91 fl (79-97); Monocytes # (Auto) 0.9 K/mm3 (0.0-0.8); Monocytes % (Auto) 9.5 % (0.0-7.3); Platelet Count 150 K/mm3 (140-440); Red Blood Count 4.69 M/mm3 (3.65-5.03); Red Cell Distribution Width 14.1 % (13.2-15.2)
[2020-08-30 23:08] LABS: Bacteria,Urine 1+ /HPF (Negative); Bilirubin,Urine NEG (Negative); Blood,Urine LG (Negative); Color,Urine Yellow (Yellow); Mucus,Urine FEW /HPF; Urobilinogen,Urine < 2.0 mg/dL (<2.0)
[2020-08-30 23:16] LABS: Alanine Aminotransferase 13 units/L (7-56); Albumin 4.1 g/dL (3.9-5); BUN/Creatinine Ratio 16; Blood Urea Nitrogen 8 mg/dL (7-17); Calcium 9.4 mg/dL (8.4-10.2); Hemolysis Index 10
[2020-08-31] MEDS ORDERED: ONDANSETRON 4 MG/2 ML INJ IV ONE ×2 (04:24→04:25)
[2020-08-31] MEDS ORDERED: KETOROLAC 30 MG/1 ML INJ IV ONE (04:24)
[2020-08-31] MEDS ORDERED: SODIUM CHLORIDE 0.9% 1000 ML 1,000 ML IV ONE ×2 (04:25→04:27)
== END 2020-08-31 02:45 | disposition left against medical advice (07) ==
LOC: ED 21:30
DX: R10.9 Unspecified abdominal pain (principal); Z53.21 Procedure and treatment not carried out due to patient leaving prior to being seen by health care provider
CPT/HCPCS: 36415; 80053; 81001; 84703; 85025; J1885; J2405; J7030

== ENCOUNTER 2020-10-08 12:46 | Emergency (ER) | payer MEDICAID ==
[2020-10-08 14:14] LABS: Bilirubin,Urine NEG (Negative); Blood,Urine NEG (Negative); Color,Urine Yellow (Yellow); Mucus,Urine FEW /HPF; Urobilinogen,Urine < 2.0 mg/dL (<2.0)
[2020-10-08 14:26] LABS: Basophils % (Auto) 0.6 % (0.0-1.8); Eosinophils # (Auto) 0.3 K/mm3 (0.0-0.4); Eosinophils % (Auto) 4.6 % (0.0-4.3); Hematocrit 44.8 % (30.3-42.9); Hemoglobin 15.7 gm/dl (10.1-14.3); Lymphocytes # (Auto) 2.1 K/mm3 (1.2-5.4); Lymphocytes % (Auto) 32.7 % (13.4-35.0); Mean Corpuscular HGB Conc 35 % (30-34); Mean Corpuscular Volume 89 fl (79-97); Monocytes # (Auto) 0.7 K/mm3 (0.0-0.8); Monocytes % (Auto) 10.4 % (0.0-7.3); Platelet Count 168 K/mm3 (140-440); Red Blood Count 5.03 M/mm3 (3.65-5.03)
[2020-10-08 14:32] LABS: Alanine Aminotransferase 13 units/L (7-56); Albumin 3.9 g/dL (3.9-5); BUN/Creatinine Ratio 18; Blood Urea Nitrogen 9 mg/dL (7-17); Calcium 9.1 mg/dL (8.4-10.2); Hemolysis Index 11
--- NOTE | 2020-10-08 14:39 | Emergency Department Report ---
ED General Adult HPI - General Chief complaint: Vaginal Bleeding Stated complaint: BLEEDING FROM RECTUM AND VAGINA Time Seen by Provider: 10/08/20 13:57 Source: patient Mode of arrival: Ambulatory Limitations: No Limitations - History of Present Illness Initial comments: Patient is a 20-year-old female presents emergency room with complaints of vaginal discharge that began a week ago. She has associated dysuria. States that she is sexually active. She states that she has some mild lower abdominal discomfort. Patient states that she is also been having some bright red per rectum whenever she has a bowel movement and wipes she notices on the tissue. She denies any hematochezia, melena, hematemesis, passing clots. PMHx DM. No allergies medications. Last menstrual cycle 09/09/2020 - Related Data Previous Rx's Medication Instructions Recorded Last Taken Type Ibuprofen [Motrin] 800 mg PO Q8H PRN #20 tablet 10/22/13 Unknown Rx Penicillin Vk [Veetids TAB] 2 tab PO BID #40 tablet 10/22/13 Unknown Rx Albuterol Mdi (or & Nicu Only) 2 puff IH QID PRN #1 inhalation 04/04/16 Unknown Rx [ProAir HFA Inhaler] guaiFENesin [Robitussin] 200 mg PO Q6HR #20 tablet 04/04/16 Unknown Rx predniSONE [Deltasone] 20 mg PO QDAY #5 tab 04/04/16 Unknown Rx Clindamycin [Clindamycin CAP] 300 mg PO Q6H #28 capsule 04/25/16 Unknown Rx Vit-Fe Fumar-FA [ 1 tab PO QDAY #30 tablet 04/25/16 Unknown Rx Vitamin] oxyCODONE /ACETAMINOPHEN [Percocet 1 tab PO Q6HR PRN #40 tablet 04/25/16 Unknown Rx 5/325] DOXYCYCLINE Hyclate [Vibramycin 100 mg PO Q12HR #28 capsule 11/12/16 Unknown Rx CAP] PE/Mo/Pet,Wh [Preparation H] 1 applicatio CA BID PRN #1 tube 11/12/16 Unknown Rx metroNIDAZOLE [Flagyl TAB] 500 mg PO Q12HR #28 tab 11/12/16 Unknown Rx Amoxicillin [Amoxicillin TAB] 875 mg PO BID #20 tablet 02/12/17 Unknown Rx Ciprofloxacin HCl [Ciprofloxacin 500 mg PO BID 7 Days tablet 03/11/17 Unknown Rx TAB] Cyclobenzaprine [Flexeril] 10 mg PO QHS PRN #20 tablet 03/11/17 Unknown Rx Ibuprofen [Motrin 800 MG tab] 800 mg PO Q8HR PRN #30 tablet 03/11/17 Unknown Rx Naproxen [Naprosyn] 500 mg PO TID #12 tablet 01/10/18 Unknown Rx traMADoL [Ultram 50 MG tab] 50 mg PO Q6HR PRN #8 tablet 01/10/18 Unknown Rx Clindamycin [Clindamycin CAP] 300 mg PO Q8H #21 cap 03/18/19 Unknown Rx Fluconazole (Nf) [Diflucan TAB] 150 mg PO ONCE #1 tablet 03/18/19 Unknown Rx Valacyclovir HCl [Valtrex] 2,000 mg PO Q12HR 1 Days #4 tablet 11/28/19 Unknown Rx metroNIDAZOLE [Flagyl] 500 mg PO Q12HR 7 Days #14 tab 11/28/19 Unknown Rx Naproxen [EC-Naprosyn] 500 mg PO BID PRN #14 tablet.dr 05/09/20 Unknown Rx Prednisone [predniSONE 10 mg 10 mg PO .TAPER #1 tab.ds.pk 05/09/20 Unknown Rx (6-Day Pack, 21 Tabs)] diphenhydrAMINE [Benadryl CAP] 25 mg PO Q8HR PRN #12 capsule 05/09/20 Unknown Rx Docusate Sodium [Colace] 100 mg PO BID #30 capsule 10/08/20 Unknown Rx Doxycycline Hyclate [Doxycycline 100 mg PO BID 7 Days #14 tab 10/08/20 Unknown Rx Hyclate TAB] Fluconazole [Diflucan TAB] 150 mg PO QDAY 2 Days #6 tablet 10/08/20 Unknown Rx Hydrocortisone [Anusol-Hc 2.5% TOP 1 applicatio RC BID #30 cream..g. 10/08/20 Unknown Rx CREAM] metroNIDAZOLE [Flagyl] 500 mg PO BID 7 Days #14 tab 10/08/20 Unknown Rx Allergies Allergy/AdvReac Type Severity Reaction Status Date / Time No Known Allergies Allergy Verified 06/26/13 19:36 ED Review of Systems ROS: Stated complaint: BLEEDING FROM RECTUM AND VAGINA Other details as noted in HPI Comment: All other systems reviewed and negative ED Past Medical Hx - Past Medical History Previous Medical History?: Yes Hx Hypertension: No Hx Congestive Heart Failure: No Hx Diabetes: Yes Hx Deep Vein Thrombosis: No Hx Renal Disease: No Hx Sickle Cell Disease: No Hx Seizures: No Hx Asthma: Yes Hx COPD: No Hx HIV: No Additional medical history: ADHD, - Surgical History Past Surgical History?: Yes Additional Surgical History: 2013, 04-22-2016 - Social History Smoking Status: Current Every Day Smoker Substance Use Type: Marijuana - Medications Home Medications: Home Medications Medication Instructions Recorded Confirmed Last Taken Type Ibuprofen [Motrin] 800 mg PO Q8H PRN #20 tablet 10/22/13 04/23/16 Unknown Rx Penicillin Vk [Veetids TAB] 2 tab PO BID #40 tablet 10/22/13 04/23/16 Unknown Rx Albuterol Mdi (or & Nicu Only) 2 puff IH QID PRN #1 inhalation 04/04/16 04/23/16 Unknown Rx [ProAir HFA Inhaler] guaiFENesin [Robitussin] 200 mg PO Q6HR #20 tablet 04/04/16 04/23/16 Unknown Rx predniSONE [Deltasone] 20 mg PO QDAY #5 tab 04/04/16 04/23/16 Unknown Rx Clindamycin [Clindamycin CAP] 300 mg PO Q6H #28 capsule 04/25/16 Unknown Rx Vit-Fe Fumar-FA [ 1 tab PO QDAY #30 tablet 04/25/16 Unknown Rx Vitamin] oxyCODONE /ACETAMINOPHEN [Percocet 1 tab PO Q6HR PRN #40 tablet 04/25/16 Unknown Rx 5/325] DOXYCYCLINE Hyclate [Vibramycin 100 mg PO Q12HR #28 capsule 11/12/16 Unknown Rx CAP] PE/Mo/Pet,Wh [Preparation H] 1 applicatio CA BID PRN #1 tube 11/12/16 Unknown Rx metroNIDAZOLE [Flagyl TAB] 500 mg PO Q12HR #28 tab 11/12/16 Unknown Rx Amoxicillin [Amoxicillin TAB] 875 mg PO BID #20 tablet 02/12/17 Unknown Rx Ciprofloxacin HCl [Ciprofloxacin 500 mg PO BID 7 Days tablet 03/11/17 Unknown Rx TAB] Cyclobenzaprine [Flexeril] 10 mg PO QHS PRN #20 tablet 03/11/17 Unknown Rx Ibuprofen [Motrin 800 MG tab] 800 mg PO Q8HR PRN #30 tablet 03/11/17 Unknown Rx Naproxen [Naprosyn] 500 mg PO TID #12 tablet 01/10/18 Unknown Rx traMADoL [Ultram 50 MG tab] 50 mg PO Q6HR PRN #8 tablet 01/10/18 Unknown Rx Clindamycin [Clindamycin CAP] 300 mg PO Q8H #21 cap 03/18/19 Unknown Rx Fluconazole (Nf) [Diflucan TAB] 150 mg PO ONCE #1 tablet 03/18/19 Unknown Rx Valacyclovir HCl [Valtrex] 2,000 mg PO Q12HR 1 Days #4 tablet 11/28/19 Unknown Rx metroNIDAZOLE [Flagyl] 500 mg PO Q12HR 7 Days #14 tab 11/28/19 Unknown Rx Naproxen [EC-Naprosyn] 500 mg PO BID PRN #14 tablet.dr 05/09/20 Unknown Rx Prednisone [predniSONE 10 mg 10 mg PO .TAPER #1 tab.ds.pk 05/09/20 Unknown Rx (6-Day Pack, 21 Tabs)] diphenhydrAMINE [Benadryl CAP] 25 mg PO Q8HR PRN #12 capsule 05/09/20 Unknown Rx Docusate Sodium [Colace] 100 mg PO BID #30 capsule 10/08/20 Unknown Rx Doxycycline Hyclate [Doxycycline 100 mg PO BID 7 Days #14 tab 10/08/20 Unknown Rx Hyclate TAB] Fluconazole [Diflucan TAB] 150 mg PO QDAY 2 Days #6 tablet 10/08/20 Unknown Rx Hydrocortisone [Anusol-Hc 2.5% TOP 1 applicatio RC BID #30 cream..g. 10/08/20 Unknown Rx CREAM] metroNIDAZOLE [Flagyl] 500 mg PO BID 7 Days #14 tab 10/08/20 Unknown Rx ED Physical Exam - General Limitations: No Limitations General appearance: alert, in no apparent distress - Head Head exam: Present: atraumatic, normocephalic - Eye Eye exam: Present: normal appearance - ENT ENT exam: Present: mucous membranes moist - Respiratory Respiratory exam: Present: normal lung sounds bilaterally. Absent: respiratory distress, wheezes, rales, rhonchi, stridor, chest wall tenderness, accessory muscle use, decreased breath sounds, prolonged expiratory - Cardiovascular Cardiovascular Exam: Present: regular rate, normal rhythm, normal heart sounds. Absent: systolic murmur, diastolic murmur, rubs, gallop - GI/Abdominal GI/Abdominal exam: Present: soft, normal bowel sounds. Absent: distended, tenderness, guarding, rebound, rigid - Rectal Rectal exam: Present: other (retail loss prevention specialist: Mandie rizo PA-C, small non thrombosed non bleeding external hemorrhoid, no gross blood, brown stool, no masses or induration) - Neurological Exam Neurological exam: Present: alert, oriented X3 - Psychiatric Psychiatric exam: Present: normal affect, normal mood - Skin Skin exam: Present: warm, dry, intact ED Course Vital Signs 10/08/20 10/08/20 13:04 15:57 Temperature 98.2 F Pulse Rate 81 91 H Respiratory 18 16 Rate Blood Pressure 141/86 Blood Pressure 128/81 [Left] O2 Sat by Pulse 96 Oximetry ED Medical Decision Making - Lab Data Result diagrams: 10/08/20 13:24 10/08/20 13:24 Lab Results 10/08/20 10/08/20 10/08/20 Range/Units 13:24 13:24 13:24 WBC 6.5 (4.5-11.0) K/mm3 RBC 5.03 (3.65-5.03) M/mm3 Hgb 15.7 H (10.1-14.3) gm/dl Hct 44.8 H (30.3-42.9) % MCV 89 (79-97) fl MCH 31 (28-32) pg MCHC 35 H (30-34) % RDW 14.0 (13.2-15.2) % Plt Count 168 (140-440) K/mm3 Lymph % (Auto) 32.7 (13.4-35.0) % Moore % (Auto) 10.4 H (0.0-7.3) % Eos % (Auto) 4.6 H (0.0-4.3) % Baso % (Auto) 0.6 (0.0-1.8) % Lymph # (Auto) 2.1 (1.2-5.4) K/mm3 Moore # (Auto) 0.7 (0.0-0.8) K/mm3 Eos # (Auto) 0.3 (0.0-0.4) K/mm3 Baso # (Auto) 0.0 (0.0-0.1) K/mm3 Seg Neutrophils % 51.7 (40.0-70.0) % Seg Neutrophils # 3.3 (1.8-7.7) K/mm3 Sodium 134 L (137-145) mmol/L Potassium 4.0 (3.6-5.0) mmol/L Chloride 98.4 (98-107) mmol/L Carbon Dioxide 22 (22-30) mmol/L Anion Gap 18 mmol/L BUN 9 (7-17) mg/dL Creatinine 0.5 L (0.6-1.2) mg/dL Estimated GFR > 60 ml/min BUN/Creatinine Ratio 18 % Glucose 294 H (65-100) mg/dL Calcium 9.1 (8.4-10.2) mg/dL Total Bilirubin 0.40 (0.1-1.2) mg/dL AST 13 (5-40) units/L ALT 13 (7-56) units/L Alkaline Phosphatase 113 (35-129) units/L Total Protein 8.2 (6.3-8.2) g/dL Albumin 3.9 (3.9-5) g/dL Albumin/Globulin Ratio 0.9 % HCG, Quant < 2 (0-4) mIU/mL Urine Color (Yellow) Urine Turbidity (Clear) Urine pH (5.0-7.0) Ur Specific [place] (1.003-1.030) Urine Protein (Negative) mg/dL Urine Glucose (UA) (Negative) mg/dL Urine Ketones (Negative) mg/dL Urine Blood (Negative) Urine Nitrite (Negative) Urine Bilirubin (Negative) Urine Urobilinogen (<2.0) mg/dL Ur Leukocyte Esterase (Negative) Urine WBC (Auto) (0.0-6.0) /HPF Urine RBC (Auto) (0.0-6.0) /HPF U Epithel Cells (Auto) (0-13.0) /HPF Urine Bacteria (Auto) (Negative) /HPF Urine Mucus /HPF Urine Yeast (Budding) /HPF 10/08/20 10/08/20 Range/Units 15:00 Unknown WBC (4.5-11.0) K/mm3 RBC (3.65-5.03) M/mm3 Hgb (10.1-14.3) gm/dl Hct (30.3-42.9) % MCV (79-97) fl MCH (28-32) pg MCHC (30-34) % RDW (13.2-15.2) % Plt Count (140-440) K/mm3 Lymph % (Auto) (13.4-35.0) % Moore % (Auto) (0.0-7.3) % Eos % (Auto) (0.0-4.3) % Baso % (Auto) (0.0-1.8) % Lymph # (Auto) (1.2-5.4) K/mm3 Moore # (Auto) (0.0-0.8) K/mm3 Eos # (Auto) (0.0-0.4) K/mm3 Baso # (Auto) (0.0-0.1) K/mm3 Seg Neutrophils % (40.0-70.0) % Seg Neutrophils # (1.8-7.7) K/mm3 Sodium (137-145) mmol/L Potassium (3.6-5.0) mmol/L Chloride (98-107) mmol/L Carbon Dioxide (22-30) mmol/L Anion Gap mmol/L BUN (7-17) mg/dL Creatinine (0.6-1.2) mg/dL Estimated GFR ml/min BUN/Creatinine Ratio % Glucose (65-100) mg/dL Calcium (8.4-10.2) mg/dL Total Bilirubin (0.1-1.2) mg/dL AST (5-40) units/L ALT (7-56) units/L Alkaline Phosphatase (35-129) units/L Total Protein (6.3-8.2) g/dL Albumin (3.9-5) g/dL Albumin/Globulin Ratio % HCG, Quant (0-4) mIU/mL Urine Color Yellow Yellow (Yellow) Urine Turbidity Cloudy Cloudy (Clear) Urine pH 5.0 6.0 (5.0-7.0) Ur Specific [place] 1.039 H 1.040 H (1.003-1.030) Urine Protein <15 mg/dl 30 mg/dl (Negative) mg/dL Urine Glucose (UA) >=500 >=500 (Negative) mg/dL Urine Ketones Tr Tr (Negative) mg/dL Urine Blood Neg Neg (Negative) Urine Nitrite Neg Pos (Negative) Urine Bilirubin Neg Neg (Negative) Urine Urobilinogen < 2.0 < 2.0 (<2.0) mg/dL Ur Leukocyte Esterase Mod Lg (Negative) Urine WBC (Auto) 68.0 H 100.0 H (0.0-6.0) /HPF Urine RBC (Auto) 19.0 36.0 (0.0-6.0) /HPF U Epithel Cells (Auto) 37.0 H 59.0 H (0-13.0) /HPF Urine Bacteria (Auto) 2+ (Negative) /HPF Urine Mucus Few /HPF Urine Yeast (Budding) 1+ /HPF - Medical Decision Making Patient is a 20-year-old female presents emergency room with complaints of vaginal discharge that began a week ago. She has associated dysuria. States that she is sexually active. She states that she has some mild lower abdominal discomfort. Patient states that she is also been having some bright red per rectum whenever she has a bowel movement and wipes she notices on the tissue. She denies any hematochezia, melena, hematemesis, passing clots. PMHx DM. No allergies medications. Last menstrual cycle 09/09/2020. Vitals are stable. On exam:retail loss prevention specialist: Mandie rizo PA-C, small non thrombosed non bleeding external hemorrhoid, no gross blood, brown stool, no masses or induration. Examination appears insistent with small external hemorrhoid, there is no active bleeding, no melena, no gross blood. Labs are stable. Initial urine has many epithelial cells, discussed hygiene with patient and to resubmit a urine sample. Second urine sample continues to have bacteria present and has yeast present. Patient given ceftriaxone IM while in the emergency department. Patient given prescription for medications. Advised patient Please take medication as prescribed. Increase your water intake. Follow-up with your primary care doctor. Follow-up with a clinic or the health department or to receive a full STD panel. Avoid sexual intercourse. Have any partners tested and treated as well. Return to emergency room for new or worse symptoms. Critical care attestation.: If time is entered above; I have spent that time in minutes in the direct care of this critically ill patient, excluding procedure time. ED Disposition Clinical Impression: Concern about STD in female without diagnosis, Bacteria in urine, External hemorrhoid Vaginitis Qualifiers: Chronicity: acute Qualified Code(s): N76.0 - Acute vaginitis Disposition: DC-01 TO HOME OR SELFCARE Is pt being admited?: No Does the pt Need Aspirin: No Condition: Stable Instructions: Hemorrhoids, Safe Sex, Vaginitis Additional Instructions: Please take medication as prescribed. Increase your water intake. Follow-up with your primary care doctor. Follow-up with a clinic or the health department or to receive a full STD panel. Avoid sexual intercourse. Have any partners tested and treated as well. Return to emergency room for new or worse symptoms. walk in clinic: [facility] Address: [address] [place] [id number] Prescriptions: Hydrocortisone [Anusol-Hc 2.5% TOP CREAM] 1 applicatio RC BID #30 cream..g. Docusate Sodium [Colace] 100 mg PO BID #30 capsule Fluconazole [Diflucan TAB] 150 mg PO QDAY 2 Days #6 tablet Doxycycline Hyclate [Doxycycline Hyclate TAB] 100 mg PO BID 7 Days #14 tab metroNIDAZOLE [Flagyl] 500 mg PO BID 7 Days #14 tab Referrals: PRIMARY MD DARREN [Primary Care Provider] - 2-3 Days LISS CARRERO MD [Staff Physician] - 2-3 Days [facility] [Provider Group] - 2-3 Days [facility] [Outside] - 2-3 Days Time of Disposition: 15:27 Print Language: NAURUAN
[2020-10-08] MEDS ORDERED: LIDOCAINE-MPF (1%) 10 MG/1 ML VIAL 5 ML INFILTRATI ONE (15:26)
[2020-10-08 15:39] LABS: Bacteria,Urine 2+ /HPF (Negative); Bilirubin,Urine NEG (Negative); Blood,Urine NEG (Negative); Color,Urine Yellow (Yellow); Protein,Urine <15 mg/dL mg/dL (Negative); Urobilinogen,Urine < 2.0 mg/dL (<2.0)
[2020-10-08 15:58] VITALS: BP 128/81
== END 2020-10-08 16:04 | disposition home or self-care (01) ==
LOC: ED 12:46
DX: N76.0 Acute vaginitis (principal); K64.4 Residual hemorrhoidal skin tags; R82.71 Bacteriuria; F17.200 Nicotine dependence, unspecified, uncomplicated; F12.90 Cannabis use, unspecified, uncomplicated; E11.9 Type 2 diabetes mellitus without complications; J45.909 Unspecified asthma, uncomplicated; Z71.1 Person with feared health complaint in whom no diagnosis is made; Z79.899 Other long term (current) drug therapy; Z98.890 Other specified postprocedural states
CPT/HCPCS: 36415; 80053; 81001; 84702; 85025; 87086; 96372; 99283; J0696